=== PATIENT | male | born 1955 | race Caucasian/White ===

== ENCOUNTER 2017-02-09 19:32 | Emergency (ER) | payer MEDICARE, BC ==
[~2017-02-09] VITALS: Ht 170.2 cm; Wt 97.9 kg
[2017-02-09 19:54] VITALS: BP 142/77; PULSE 97; RESP 20; TEMP 98.3; O2SAT 94
[2017-02-09 21:23] VITALS: BP 142/77; PULSE 97; RESP 20; TEMP 98.3; O2SAT 94
[2017-02-09] MEDS ORDERED: PERI8.6T PO (21:38)
[2017-02-09] MEDS ORDERED: MAGNSOL2 PO (21:38)
[2017-02-09] MEDS ORDERED: LACT10SO PO (21:38)
--- NOTE | 2017-02-09 21:38 | PD ---
HPI Chief Complaint: GI Complaint Time Seen by Provider: 21:02 Travel History International Travel<30 days: No Contact w/Intl Traveler<30days: No Traveled to known affect area: No History of Present Illness HPI PATIENT STATES THAT HE HAS NOT HAD A BM SINCE SUNDAY, STATES THAT HE HAS ABDOMINAL DISCOMFORT BUT NO ACTIVE PAIN (0/10). DENIES FEVER/N/V/CP/WHITNEY/ no alleviating/aggravating factors PFSH Past Medical History Diabetes: Yes Social History Tobacco Use: No Allergies-Medications (Allergen,Severity, Reaction): Coded Allergies: Sulfa (Sulfonamide Antibiotics) (Verified Allergy, Intermediate, Rash, ) per pt broke out in rash Reported Meds & Prescriptions Reported Meds & Active Scripts Active Reported Tramadol (Tramadol HCl) 50 Mg Tab 50 Mg PO Q12HR PRN Tamsulosin (Tamsulosin HCl) 0.4 Mg Cap 0.4 Mg PO HS Sumatriptan (Sumatriptan Succinate) 25 Mg Tab 25 Mg PO ONCE PRN If a satisfactory response has not been obtained at 2 hours, a second dose may be administered Zocor (Simvastatin) 40 Mg Tab 40 Mg PO DAILY Viagra (Sildenafil Citrate) 100 Mg Tab 100 Mg PO DAILY PRN Metformin (Metformin HCl) 500 Mg Tab 500 Mg PO BIDPC With meals Meloxicam 15 Mg Tab 15 Mg PO DAILY Gabapentin 300 Mg Cap 300 Mg PO HS Fluoxetine (Fluoxetine HCl) 60 Mg Tab 60 Mg PO DAILY Buspirone (Buspirone HCl) 10 Mg Tab 10 Mg PO BID Xanax (Alprazolam) 0.25 Mg Tab 0.25 Mg PO DAILY Review of Systems Except as stated in HPI: all other systems reviewed are Neg Gastrointestinal: Positive: Other (NO BM) Physical Exam Narrative GENERAL: SKIN: Warm and dry. HEAD: Atraumatic. Normocephalic. EYES: Pupils equal and round. No scleral icterus. No injection or drainage. ENT: No nasal bleeding or discharge. Mucous membranes pink and moist. NECK: Trachea midline. No JVD. CARDIOVASCULAR: Regular rate and rhythm. RESPIRATORY: No accessory muscle use. Clear to auscultation. Breath sounds equal bilaterally. GASTROINTESTINAL: Abdomen soft, non-tender, nondistended. MUSCULOSKELETAL: Extremities without clubbing, cyanosis, or edema. No obvious deformities. NEUROLOGICAL: Awake and alert. No obvious cranial nerve deficits. Motor grossly within normal limits. Five out of 5 muscle strength in the arms and legs. Normal speech. PSYCHIATRIC: Appropriate mood and affect; insight and judgment normal. Data Data Last Documented VS Vital Signs Date Time Temp Pulse Resp B/P (MAP) Pulse Ox O2 Delivery O2 Flow Rate FiO2 02/09/17 22:50 02/09/17 21:23 98.3 97 20 94 Orders Orders Abdomen, Flat & Upright (02/09/17 21:29) Fleets Enema PRN (02/09/17 22:05) MDM Medical Decision Making Medical Screen Exam Complete: Yes Emergency Medical Condition: Yes Medical Record Reviewed: Yes Differential Diagnosis SBO V PERFORATION V ILEUS V CONSTIPATION Narrative Course xray does not show any e/o free air nor any sbo....pt history c/w constipation Diagnosis Primary Impression: CONSTIPATION Patient Instructions: Constipation (ED), General Instructions Additional Instructions: PLEASE TAKE MEDICATIONS PRESCRIBED TO HELP. TAKE ALL MEDICATIONS UNTIL YOU START HAVING A BOWEL MOVEMENT, ONCE YOU START HAVING THEM THEN DECREASE TO ONLY TAKE MIRALAX DAILY TO KEEP REGULAR Disposition: 01 DISCHARGE HOME Condition: Stable Shaggy Matthews MD Feb 09, 2017 21:38
[2017-02-09] MEDS ORDERED: ALPR.25 PO (21:53)
[2017-02-09] MEDS ORDERED: FLUO60TA PO (21:53)
[2017-02-09] MEDS ORDERED: BUSP10TA PO (21:53)
--- NOTE | 2017-02-09 21:55 | RADRPT ---
EXAM DATE/TIME: 02/09/2017 21:39 [facility] COMPARISON: No previous studies available for comparison. INDICATIONS : Constipation. MEDICAL HISTORY : None. SURGICAL HISTORY : None. ENCOUNTER: Initial ACUITY: 4 - 6 days PAIN SCORE: 10/10 LOCATION: Bilateral abdomen FINDINGS: There is no bowel distention. A few nonspecific fluid levels are seen in the colon. The amount of sto ol in the colon is normal. No free air. Mild right and moderate to severe left hip osteoarthritis noted. 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 Suspected ankylosis on the left. CONCLUSION: Nonspecific, nonobstructive bowel gas pattern. Please see above. Declan Williamson MD on February 09, 2017 at 21:52 Board Certified Radiologist. This report was verified electronically.
[2017-02-09] MEDS ORDERED: SUMA25TA2 PO (22:05)
[2017-02-09] MEDS ORDERED: TRAM50TA PO (22:05)
[2017-02-09] MEDS ORDERED: METF500T PO (22:05)
[2017-02-09] MEDS ORDERED: GABA300C5 PO (22:05)
[2017-02-09] MEDS ORDERED: VIAG100T PO (22:05)
[2017-02-09] MEDS ORDERED: ZOCO40TA PO (22:05)
[2017-02-09] MEDS ORDERED: MELO-1 PO (22:05)
[2017-02-09] MEDS ORDERED: TAMS0.4C4 PO (22:05)
== END 2017-02-09 22:51 | disposition home or self-care (01) ==
LOC: PHED 19:32
DX: K59.00 Constipation, unspecified (principal)
CPT/HCPCS: 74020; 99283